=== PATIENT | male | born 2000 | race Caucasian/White ===

== ENCOUNTER 2019-06-15 23:17 | Emergency (ER) | payer MEDICAID ==
[~2019-06-15] VITALS: Ht 185.4 cm; Wt 78.5 kg
[2019-06-15 23:38] VITALS: BP 121/87; Ht 185.4 cm; Wt 78.5 kg
== END 2019-06-16 01:26 | disposition home or self-care (01) ==
LOC: ED 23:17
DX: Z11.3 Encounter for screening for infections with a predominantly sexual mode of transmission (principal)
CPT/HCPCS: 87491; 87591; J0696